=== PATIENT | male | born 1940 | race Caucasian/White ===

== ENCOUNTER → 2018-09-02 | Outpatient (CLI) | payer MEDICARE ==
[~2018-09-02] MED LIST: ASA81 MG PO; ASPIRIN81 MG PO; CLONIDINE HCL0.1 MG PO; FLECAINIDE ACE100 MG PO; FLECAINIDE ACET50 MG PO; GEMFIBROZIL600 MG PO; LOSARTAN POTAS100 MG PO; METOPROLOL SUC100 MG PO; PANTOPRAZOLE SO20 MG PO; PANTOPRAZOLE SO40 MG PO; Z DILTIAZEM PO; Z.0.AMLODIPINE BESYL PO; Z.0.CLONIDINE HCL0.1 PO; Z.0.GEMFIBROZIL600 M PO; Z.0.NEXIUM40 MG PO; ZOLPIDEM TARTRA10 MG PO
--- NOTE | 2018-09-02 10:47 | Diagnostic Imaging Report ---
PROCEDURE: L-SPINE COMPLETE COMPARISON: None. INDICATIONS: BILATERAL LEG PAIN FINDINGS: The there is diffuse bony osteopenia. Transitional L5 vertebral body. The lumbar spine is in anatomic alignment without evidence of fracture or spondylolisthesis. There is mild diffuse osteophytosis. Vertebral body heights and disc spaces are maintained. No compressed vertebral body segments. Vascular calcification is noted. The paraspinal soft tissues are normal. 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 Anderson Kelley D.O. Dictated by: Anderson Kelley D.O. on 09/02/2018 at 10:55 Electronically approved by: Anderson Kelley D.O. on 09/02/2018 at 10:55
== END ==
LOC: RAD 09:01
DX: M54.5 Low back pain (principal); M79.605 Pain in left leg; M79.604 Pain in right leg
CPT/HCPCS: 72110

== ENCOUNTER 2019-05-17 18:48 | Emergency (ER) | payer MEDICARE ==
[~2019-05-17] VITALS: Ht 182.9 cm; Wt 86.2 kg
--- OUTSIDE RECORDS SUMMARY | 2019-05-17 18:54 | XMS REPORT ---
Author Author [facility] Address Unknown Phone Unavailable Care Team Providers Care Fiscal Clerk Name Role Phone ADRIANA VALENTIN Unavailable Unavailable Problems This patient has no known problems. Allergies, Adverse Reactions, Alerts This patient has no known allergies or adverse reactions. Medications This patient has no known medications. Results Test Description Test Time Test Comments Text Results Atomic Results Result Comments SP LUMBAR, COMPLETE MIN 4VW 2018-09-02 10:56:00 [facility] [address] [place] [address] Patient Name: LISA DELGADILLO JR MR #: [id number] : 1940 Age/Sex: 78/M Req #: [id number] Adm Physician: Ordered by: ADRIANA VALENTIN MD Report #: [id number] Location: [facility] Room/Bed: Procedure: [id number] DX/SP LUMBAR, COMPLETE MIN 4VW Exam Date: 09/02/18 Exam Time: 0910 REPORT STATUS: Signed PROCEDURE: L-SPINE COMPLETE COMPARISON: None. INDICATIONS: BILATERAL LEG PAIN FINDINGS: The there is diffuse bony osteopenia. Transitional L5 vertebral body. The lumbar spine is in anatomic alignment without evidence of fracture or spondylolisthesis. There is mild diffuse osteophytosis. Vertebral body heights and disc spaces are maintained. No compressed vertebral body segments. Vascular calcification is noted. The paraspinal soft tissues are normal. 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 Pedro Kelley D.O. Dictated by: Pedro Kelley D.O. on 09/02/2018 at 10:55 Electronically approved by: Pedro Kelley D.O. on 09/02/2018 at 10:55 Dictated By: PEDRO KELLEY DO 1056 Transcribed By: CHRISTY on 09/02/18 1056 COPY TO: ADRIANA VALENTIN MD
--- NOTE | 2019-05-17 20:07 | Diagnostic Imaging Report ---
EXAMINATION: CXR 1 [facility] INDICATION: Low blood pressure. Dizziness. COMPARISON: Report from chest x-ray from 03/17/2016. FINDINGS: TUBES and LINES: None. LUNGS: Lungs are well inflated. Lungs are clear. There is no evidence of pneumonia or pulmonary edema. PLEURA: No pleural effusion or pneumothorax. HEART AND MEDIASTINUM: The cardiomediastinal silhouette is unremarkable. There are atherosclerotic calcifications within the aorta. BONES AND SOFT TISSUES: No acute osseous lesion. Soft tissues are unremarkable. UPPER ABDOMEN: No free air under the diaphragm. IMPRESSION: No acute thoracic abnormality. Signed by: Dr. Scottie Coates M.D. on 05/17/2019 8:04 PM
[2019-05-17] MEDS ORDERED: SODIUM CHLORIDE 0.9% 1000ML 1,000 ML ONE (21:12)
== END 2019-05-17 22:30 | disposition home or self-care (01) ==
LOC: FSED 18:48
DX: R53.1 Weakness (principal); R42 Dizziness and giddiness; E86.0 Dehydration; K52.9 Noninfective gastroenteritis and colitis, unspecified; I95.9 Hypotension, unspecified; I10 Essential (primary) hypertension; E78.00 Pure hypercholesterolemia, unspecified; K21.9 Gastro-esophageal reflux disease without esophagitis
CPT/HCPCS: 71045; 80053; 80076; 81003; 83880; 84484; 85025; 85379; 85610; 87040; 93005; 99284; J7030

== ENCOUNTER → 2019-06-03 | Outpatient (CLI) | payer MEDICARE ==
--- NOTE | 2019-06-04 08:33 | Diagnostic Imaging Report ---
#[id number] - USBRELIMLT ULTRASOUND OF THE LEFT BREAST : 06/03/2019 Comparison is made to exam dated: 06/03/2019 mammogram - [facility]. Real-time ultrasound was performed on the left breast. There are no solid or cystic masses identified. IMPRESSION: BENIGN There is no sonographic evidence of malignancy. A 1 year screening mammogram is recommended. EMILIE DAVIS M.D. ct/penrad:06/03/2019 14:54:47 Pattern Gater: GARDENIA WHYTE RDMS, [facility] letter sent: Normal Exam Ultrasound BI-RADS: 2 Benign
--- NOTE | 2019-06-04 08:33 | Diagnostic Imaging Report ---
#[id number] - [id number] #MALE BILATERAL DIGITAL DIAGNOSTIC MAMMOGRAM WITH CAD: 06/03/2019 No prior exams were available for comparison. Current study contains 5 films. Current study was also evaluated with a Computer Aided Detection (CAD) system. No significant masses, calcifications, or other findings are seen in either breast. Flame shaped left retroareolar density is consistent with gynecomastia. IMPRESSION: NEGATIVE See the report for ultrasound performed the same day for additional details. There is no mammographic evidence of malignancy. A 1 year screening mammogram is recommended. The patient will be notified by letter of the results. EMILIE DAVIS M.D. Additional Observers: EMILIE DAVIS M.D. ct/:06/03/2019 14:54:16 Manager Speech: Yolanda CRESPO)([place]), [facility] letter sent: Normal Exam Mammogram BI-RADS: 1 Negative
== END ==
LOC: MAMMO 12:56
DX: N63.32 Unspecified lump in axillary tail of the left breast (principal)
CPT/HCPCS: 77066

== ENCOUNTER 2021-04-20 18:57 | Inpatient (IN) | payer MEDICARE ==
[~2021-04-20] VITALS: Ht 182.9 cm; Wt 83.2 kg
[2021-04-20 20:16] LABS: BASOPHILS # (AUTO) 0.1 (0.0-0.1); BASOPHILS % 0.8 % (0.0-1.0); EOSINOPHILS # (AUTO) 0.1 (0.0-0.4); EOSINOPHILS % 1.1 % (0.0-6.0); HEMATOCRIT 40.6 % (38.2-49.6); HEMOGLOBIN 13.5 g/dL (14.0-18.0); LYMPHOCYTES # (AUTO) 2.7 (1.0-3.2); LYMPHOCYTES % 25.8 % (18.0-39.1); MEAN CORPUSCULAR HEMOGLOBIN 31.8 pg (28-32); MEAN CORPUSCULAR HGB CONC 33.3 g/dL (31-35); MEAN CORPUSCULAR VOLUME 95.5 fL (81-99); MONOCYTES # (AUTO) 0.7 (0.2-0.8); MONOCYTES % 6.7 % (4.4-11.3); NEUTROPHILS # (AUTO) 6.9 (2.1-6.9); NEUTROPHILS % 65.2 % (38.7-80.0); PLATELET COUNT 321 x10e3/uL (140-360); RED BLOOD COUNT 4.25 x10e6/uL (4.3-5.7); RED CELL DISTRIBUTION WIDTH 13.2 % (11.7-14.4)
[2021-04-20 20:24] LABS: INR 0.99; PROTHROMBIN TIME 13.7 seconds (11.9-14.5)
[2021-04-20 20:25] LABS: PARTIAL THROMBOPLASTIN TIME 23.8 seconds (23.8-35.5)
[2021-04-20 20:43] LABS: ALBUMIN 3.8 g/dL (3.5-5.0); ALBUMIN/GLOBULIN RATIO 1.1 (0.8-2.0); ANION GAP 17.7 mmol/L (8-16); CALCIUM 9.3 mg/dL (8.4-10.2); CREATININE, SERUM 1.45 mg/dL (0.72-1.25); POTASSIUM 3.7 mmol/L (3.5-5.1)
[2021-04-20 20:43] LABS: BACTERIA,URINE FEW /HPF; RBC,URINE >50 /HPF (0-5)
[2021-04-20 20:47] LABS: CLARITY,URINE TURBID (CLEAR); COLOR,URINE RED (YELLOW)
[2021-04-20 20:48] LABS: KETONES,URINE NEGATIVE (NEGATIVE); LEUKOCYTE ESTERASE ,URINE NEGATIVE (NEGATIVE); NITRITE,URINE NEGATIVE (NEGATIVE); PROTEIN,URINE DIPSTICK >=300 (NEGATIVE); URINE UROBILINOGEN 0.2 mg/dL (0.2 - 1)
[2021-04-20] MEDS ORDERED: SODIUM CHLORIDE 0.9% 1000ML 1,000 ML IV ONE (21:00)
[2021-04-20] MEDS ORDERED: IOPAMIDOL 370 MG/ML 200 ML INFUS..BTL INJ ONE (21:25)
[2021-04-20] MEDS ORDERED: SODIUM CHLORIDE 0.9% 250ML 250 ML ONE (21:25)
[2021-04-20] MEDS ORDERED: ONDANSETRON HCL INJ 2MG/ML 2ML 2 MG/ML VIAL IV PRN (23:15)
[2021-04-20] MEDS: CEFTRIAXONE 1 GM in SODIUM CHLORIDE 0.9% 50ML 50 ML IV SCH (23:19)
[2021-04-20] MEDS: SODIUM CHLORIDE 0.9% 1000ML 1,000 ML IV SCH (23:20)
[2021-04-20] MEDS ORDERED: SODIUM CHLORIDE 0.9% 1000ML 1,000 ML ONE (23:28)
[2021-04-20] MEDS ORDERED: GEMFIBROZIL600 MG PO (23:34)
[2021-04-20] MEDS ORDERED: HYDRALAZINE HCL50 MG PO (23:34)
[2021-04-20] MEDS ORDERED: AMBIEN10 MG PO (23:38)
[2021-04-20] MEDS: CLONIDINE HCL 0.1 MG TAB PO SCH (23:45)
[2021-04-20] MEDS: HYDRALAZINE HCL 25 MG TAB PO SCH (23:45)
[2021-04-20] MEDS ORDERED: CLONIDINE HCL 0.1 MG TAB ONE (23:50)
[2021-04-20] MEDS ORDERED: HYDRALAZINE HCL 25 MG TAB ONE (23:50)
[2021-04-21] VITALS (12 sets, daily range): BP systolic 117–178; BP diastolic 70–117
[2021-04-21] MEDS: FLECAINIDE ACETATE 100 MG TAB PO SCH ×3 (01:30→21:32)
[2021-04-21] MEDS: ZOLPIDEM TARTRATE 10 MG TAB PO PRN ×2 (01:31→21:52)
[2021-04-21] MEDS: SODIUM CHLORIDE 0.9% 1000ML 1,000 ML IV SCH ×2 (07:15→15:15)
[2021-04-21] MEDS: PANTOPRAZOLE SOD 40 MG TABEC PO SCH (07:30)
[2021-04-21] MEDS: CLONIDINE HCL 0.1 MG TAB PO SCH ×2 (08:00→16:55)
[2021-04-21] MEDS: LOSARTAN POTASSIUM 100 MG TAB PO SCH (08:00)
[2021-04-21] MEDS: HYDRALAZINE HCL 25 MG TAB PO SCH (08:00)
[2021-04-21] MEDS: METOPROLOL SUCCINATE 50 MG TAB XL PO SCH (08:01)
[2021-04-21 08:06] LABS: BASOPHILS # (AUTO) 0.1 (0.0-0.1); BASOPHILS % 0.8 % (0.0-1.0); EOSINOPHILS # (AUTO) 0.2 (0.0-0.4); EOSINOPHILS % 1.6 % (0.0-6.0); HEMOGLOBIN 13.6 g/dL (14.0-18.0); LYMPHOCYTES # (AUTO) 3.1 (1.0-3.2); LYMPHOCYTES % 32.5 % (18.0-39.1); MEAN CORPUSCULAR HEMOGLOBIN 31.8 pg (28-32); MEAN CORPUSCULAR HGB CONC 33.2 g/dL (31-35); MEAN CORPUSCULAR VOLUME 95.8 fL (81-99); MONOCYTES # (AUTO) 0.8 (0.2-0.8); MONOCYTES % 8.5 % (4.4-11.3); NEUTROPHILS # (AUTO) 5.4 (2.1-6.9); PLATELET COUNT 313 x10e3/uL (140-360); RED BLOOD COUNT 4.28 x10e6/uL (4.3-5.7); RED CELL DISTRIBUTION WIDTH 13.1 % (11.7-14.4)
[2021-04-21 08:28] LABS: ALANINE AMINOTRANSFERASE 10 IU/L (0-55); ALBUMIN 3.7 g/dL (3.5-5.0); ALBUMIN/GLOBULIN RATIO 1.1 (0.8-2.0); ALKALINE PHOSPHATASE 64 IU/L (40-150); ANION GAP 12.6 mmol/L (8-16); BLOOD UREA NITROGEN 24 mg/dL (7-26); BUN/CREATININE RATIO 24 (6-25); CALCIUM 8.7 mg/dL (8.4-10.2); CARBON DIOXIDE 24 mmol/L (22-29); CHLORIDE 107 mmol/L (98-107); CREATININE, SERUM 1.02 mg/dL (0.72-1.25); EST GLOMERULAR FILTRATION RATE > 60 ML/MIN (60-); GLUCOSE 83 mg/dL (74-118); POTASSIUM 3.6 mmol/L (3.5-5.1); SODIUM 140 mmol/L (136-145)
[2021-04-21] MEDS ORDERED: HYDRALAZINE HCL 20 MG/ML VIAL IV PRN (10:30)
[2021-04-21] MEDS: HYDRALAZINE HCL 20 MG/ML VIAL IV PRN ×2 (11:30→23:27)
[2021-04-21] MEDS: CEFTRIAXONE 1 GM in SODIUM CHLORIDE 0.9% 50ML 50 ML IV SCH (23:39)
[2021-04-22 04:00] VITALS: BP 139/79
[2021-04-22] MEDS: SODIUM CHLORIDE 0.9% 1000ML 1,000 ML IV SCH ×3 (04:04→15:15)
[2021-04-22 05:54] LABS: BASOPHILS # (AUTO) 0.1 (0.0-0.1); EOSINOPHILS # (AUTO) 0.2 (0.0-0.4); EOSINOPHILS % 2.4 % (0.0-6.0); HEMATOCRIT 42.6 % (38.2-49.6); HEMOGLOBIN 14.2 g/dL (14.0-18.0); LYMPHOCYTES # (AUTO) 2.4 (1.0-3.2); LYMPHOCYTES % 26.7 % (18.0-39.1); MEAN CORPUSCULAR HEMOGLOBIN 31.8 pg (28-32); MEAN CORPUSCULAR HGB CONC 33.3 g/dL (31-35); MEAN CORPUSCULAR VOLUME 95.5 fL (81-99); MONOCYTES # (AUTO) 0.9 (0.2-0.8); MONOCYTES % 9.6 % (4.4-11.3); NEUTROPHILS # (AUTO) 5.4 (2.1-6.9); NEUTROPHILS % 59.5 % (38.7-80.0); PLATELET COUNT 332 x10e3/uL (140-360); RED BLOOD COUNT 4.46 x10e6/uL (4.3-5.7); RED CELL DISTRIBUTION WIDTH 13.1 % (11.7-14.4)
[2021-04-22 06:14] LABS: ANION GAP 11.9 mmol/L (8-16); BLOOD UREA NITROGEN 18 mg/dL (7-26); BUN/CREATININE RATIO 21 (6-25); CALCIUM 8.7 mg/dL (8.4-10.2); CARBON DIOXIDE 24 mmol/L (22-29); CHLORIDE 109 mmol/L (98-107); CREATININE, SERUM 0.84 mg/dL (0.72-1.25); EST GLOMERULAR FILTRATION RATE > 60 ML/MIN (60-); GLUCOSE 82 mg/dL (74-118); POTASSIUM 3.9 mmol/L (3.5-5.1); SODIUM 141 mmol/L (136-145)
[2021-04-22] MEDS: PANTOPRAZOLE SOD 40 MG TABEC PO SCH (07:30)
[2021-04-22 08:40] VITALS: BP 139/79
[2021-04-22 08:46] VITALS: BP 135/94
[2021-04-22] MEDS: FLECAINIDE ACETATE 100 MG TAB PO SCH ×2 (09:00→22:18)
[2021-04-22] MEDS: METOPROLOL SUCCINATE 50 MG TAB XL PO SCH (09:00)
[2021-04-22] MEDS: CLONIDINE HCL 0.1 MG TAB PO SCH ×2 (09:00→16:30)
[2021-04-22] MEDS: HYDRALAZINE HCL 25 MG TAB PO SCH (09:00)
[2021-04-22] MEDS: LOSARTAN POTASSIUM 100 MG TAB PO SCH (09:00)
[2021-04-22 13:02] VITALS: BP 143/92
[2021-04-22 17:14] VITALS: BP 129/99
[2021-04-22 20:00] VITALS: BP 136/80
[2021-04-22] MEDS: ZOLPIDEM TARTRATE 10 MG TAB PO PRN (22:24)
[2021-04-23] VITALS (7 sets, daily range): BP systolic 116–167; BP diastolic 82–104
[2021-04-23] MEDS: SODIUM CHLORIDE 0.9% 1000ML 1,000 ML IV SCH ×2 (01:26→07:15)
[2021-04-23] MEDS: CEFTRIAXONE 1 GM in SODIUM CHLORIDE 0.9% 50ML 50 ML IV SCH (01:26)
[2021-04-23 05:42] LABS: ANION GAP 13.9 mmol/L (8-16); BLOOD UREA NITROGEN 16 mg/dL (7-26); BUN/CREATININE RATIO 19 (6-25); CALCIUM 8.7 mg/dL (8.4-10.2); CARBON DIOXIDE 20 mmol/L (22-29); CHLORIDE 111 mmol/L (98-107); CREATININE, SERUM 0.83 mg/dL (0.72-1.25); EST GLOMERULAR FILTRATION RATE > 60 ML/MIN (60-); GLUCOSE 86 mg/dL (74-118); POTASSIUM 3.9 mmol/L (3.5-5.1); SODIUM 141 mmol/L (136-145)
[2021-04-23] MEDS ORDERED: IOPAMIDOL 300MG/ML 50ML INFUS..BTL IV ONE (07:56)
[2021-04-23] MEDS ORDERED: B&O 60MG R/S 60 MG SUPP PR ONE (07:57)
[2021-04-23] MEDS ORDERED: ONDANSETRON HCL 4 MG ORAL DISINTEGRATING TAB PO PRN (08:15)
[2021-04-23] MEDS: PANTOPRAZOLE SOD 40 MG TABEC PO SCH (09:15)
[2021-04-23] MEDS: HYDRALAZINE HCL 25 MG TAB PO SCH (09:15)
[2021-04-23] MEDS: CLONIDINE HCL 0.1 MG TAB PO SCH (09:16)
[2021-04-23] MEDS: LOSARTAN POTASSIUM 100 MG TAB PO SCH (09:16)
[2021-04-23] MEDS: METOPROLOL SUCCINATE 50 MG TAB XL PO SCH (09:16)
[2021-04-23] MEDS: FLECAINIDE ACETATE 100 MG TAB PO SCH (09:17)
[2021-04-23] MEDS ORDERED: PROPOFOL IV EMULSION 10 MG/ML 20 ML VIAL ONE (12:04)
[2021-04-23] MEDS ORDERED: ONDANSETRON HCL INJ 2MG/ML 2ML 2 MG/ML VIAL ONE (12:04)
[2021-04-23] MEDS ORDERED: GENTAMICIN SULFATE 40 MG/ML 2 ML VIAL ONE (12:04)
[2021-04-23] MEDS ORDERED: DEXAMETHASONE SOD PHOS INJ 4 MG/ML VIAL ONE (12:04)
[2021-04-23] MEDS ORDERED: POVIDONE IODINE 0.05% 0.05 % ML PO ONE (12:04)
[2021-04-23] MEDS ORDERED: PHENYLEPHRINE HCL 1% 10 MG/ML VIAL ONE (12:04)
[2021-04-23] MEDS ORDERED: LIDOCAINE HCL 2% LOCAL INJ 5 ML SDV VIAL INJ ONE (12:04)
[2021-04-23] MEDS ORDERED: SEVOFLURANE INHAL SOLN 250 ML PEN BTL ONE (12:04)
[2021-04-23] MEDS ORDERED: CEFUROXIME250 MG PO (13:31)
== END 2021-04-23 15:13 | disposition home or self-care (01) | DRG 690 ==
LOC: ER 20:01 → ERHOLD 23:23 → MED/SURG2 04-21 00:50 → OBSVTOIN 04-22 10:42
PROC: BT141ZZ Fluoroscopy of Kidneys, Ureters and Bladder using Low Osmolar Contrast (ICD-10-PCS; principal; 2021-04-23 08:00)
DX: N30.01 Acute cystitis with hematuria (principal); N17.9 Acute kidney failure, unspecified; I10 Essential (primary) hypertension; E78.5 Hyperlipidemia, unspecified; K21.9 Gastro-esophageal reflux disease without esophagitis; Z95.0 Presence of cardiac pacemaker; D64.9 Anemia, unspecified; N32.9 Bladder disorder, unspecified; N39.41 Urge incontinence; Z85.46 Personal history of malignant neoplasm of prostate; Z87.891 Personal history of nicotine dependence; B96.20 Unspecified Escherichia coli [E. coli] as the cause of diseases classified elsewhere
CPT/HCPCS: 36415; 74178; 74420; 80048; 80053; 81001; 84152; 85025; 85610; 85730; 87086; 87186; 96361; 99284; C1758; G0378; J0360; J0696; J1100; J1580; J2001; J2370; J2405; J7030; J7050; Q9967

== ENCOUNTER → 2021-07-26 | Outpatient (CLI) | payer MEDICARE ==
[~2021-07-26] MED LIST changes: +AMBIEN10 MG PO; +CEFUROXIME250 MG PO; +HYDRALAZINE HCL50 MG PO; +IOPAMIDOL 370 MG/ML 200 ML INFUS..BTL INJ ONE; +METOPROLOL TARTRATE 25 MG TAB ONE; +METOPROLOL TARTRATE INJ 1 MG/ML VIAL ONE; +NITROGLYCERIN 0.4 MG SUBL ONE; +SODIUM CHLORIDE 0.9% 100 ML ONE; +SODIUM CHLORIDE 0.9% 250ML 250 ML ONE
== END ==
LOC: CT 08:16
PROVIDERS: ATTEND Nurse Practitioner
DX: R55 Syncope and collapse (principal)
CPT/HCPCS: 75574; J7050 ×2; Q9967

== ENCOUNTER → 2022-03-28 | Outpatient (CLI) | payer MEDICARE ==
[~2022-03-28] MED LIST changes: -IOPAMIDOL 370 MG/ML 200 ML INFUS..BTL INJ ONE; -METOPROLOL TARTRATE 25 MG TAB ONE; -METOPROLOL TARTRATE INJ 1 MG/ML VIAL ONE; -NITROGLYCERIN 0.4 MG SUBL ONE; -SODIUM CHLORIDE 0.9% 100 ML ONE; -SODIUM CHLORIDE 0.9% 250ML 250 ML ONE
== END ==
LOC: CARD 14:34
DX: M79.605 Pain in left leg (principal); M79.604 Pain in right leg
CPT/HCPCS: 93925

== ENCOUNTER 2023-01-09 16:53 | Emergency (ER) | payer MEDICARE ==
[~2023-01-09] VITALS: Ht 188 cm; Wt 83.0 kg
[2023-01-09] MEDS ORDERED: CEFTRIAXONE 1 GM VIAL IV ONE (17:15)
[2023-01-09] MEDS ORDERED: EASY NEB COMPR1 EACH (17:58)
[2023-01-09] MEDS ORDERED: AZITHROMYCIN250 MG PO (17:58)
[2023-01-09] MEDS ORDERED: VENTOLIN HFA18 GM INH (17:58)
[2023-01-09] MEDS ORDERED: PREDNISONE20 MG PO (17:58)
[2023-01-09] MEDS ORDERED: IPRAT-ALBUT 0.5-3 ML NEB (17:58)
[2023-01-09] MEDS ORDERED: BENZONATATE200 MG PO (17:58)
[2023-01-09] MEDS ORDERED: DEXAMETHASONE SOD PHOS INJ 4 MG/ML SDV IV ONE (18:00)
[2023-01-09] MEDS ORDERED: DEXAMETHASONE SOD PHOS 10 MG/1 ML VIAL IV ONE (18:00)
== END 2023-01-09 18:34 | disposition home or self-care (01) ==
LOC: FSED 17:00
DX: R50.9 Fever, unspecified (principal); J40 Bronchitis, not specified as acute or chronic; J06.9 Acute upper respiratory infection, unspecified; R06.02 Shortness of breath; R05.9 Cough, unspecified; Z20.822 Contact with and (suspected) exposure to COVID-19
CPT/HCPCS: 71045; 80053; 82553; 83605; 83880; 84484; 85025; 85610; 87040; 93005; 99284; U0002; J1100